=== PATIENT | male | born 1955 | race Caucasian/White ===

== ENCOUNTER 2016-11-25 16:51 | Emergency (ER) | payer SELFPAY ==
[~2016-11-25 16:51] MED LIST: D5W ONE; DOPAMINE HCL ONE; EPINEPHrine 1 MG/10 ML Abboject SYRINGE ONE; Magnesium 5 GM/10 ML VIAL ONE; Sodium Chloride 0.9% 1,000 ML BAG ONE; Sodium Chloride 0.9% 500 ML BAG ONE
[2016-11-25 17:29] LABS: INR-International Normal Ratio 1.4; Prothrombin Time 17.1 SEC (12.0-14.7)
[2016-11-25 17:34] LABS: %Lymphocytes 37.3 % (21.0-51.0); %Neutrophils 53.9 % (42.0-75.0); Hemoglobin 11.9 g/dL (14.0-18.0); Mean Corpuscular HGB CONC 34.9 g/dL (32.0-36.0); Mean Corpuscular Hemoglobin 36.2 pg (27.0-31.0); Mean Platelet Volume 8.6 fL (7.4-10.4); Platelet Count 161 thou/uL (130-400); RBC Distribution Width 11.8 % (11.5-14.5); Red Blood Cell (RBC) Count 3.29 mill/uL (4.70-6.10); White Blood Cell (WBC) Count 6.7 thou/uL (4.8-10.8)
[2016-11-25 17:35] LABS: %Basophils 2.8 % (0.0-1.0); Macrocytosis SLIGHT = 6-15 cells (100X) (0-5/hpf)
--- NOTE | 2016-11-25 17:36 | ERRECORD ---
[facility] EMERGENCY RECORD HPI CRITICAL ILLNESS CHIEF COMPLAINT: Patient presents for evaluation of syncope. (17:13 ABUS) HISTORIAN: History provided by patient's family, Additional history obtained from EMS, 61 yr old M brought in by EMS with reports of losing consciousness at CPR was started by bystanders for about 10 min and then EMS did CPR for 10-15 mins, placed a Richard airway, and 4 doses of epi with ROSC. Family present who said they found klonopin in his back pocket and possibly ingested aspirin, but it is unclear. There is concern for possible ingestion and suicide attempt but again this is not validated. (17:13 ABUS) CRITICAL CARE: Time spent providing critical care to patient was 30-74 minutes, 30 minutes, Total number of minutes spent in direct care of this critically ill patient excluding procedure time. (19:47 ABUS) E/M CAVEAT: Emergency room caveat invoked due to, Cardiac arrest now intubated. (17:13 ABUS) ROS (17:19 ABUS) CARDIOVASCULAR: Historian reports syncope. NOTES: Systems not reviewed; unable., Emergency room caveat invoked due to intubated patient. PAST MEDICAL HISTORY (17:29 AWAT) MEDICAL HISTORY: Notes: UNKNOWN PER BROTHER. MALE SURGICAL HISTORY: NONE KNOWN PER BROTHER. PSYCHIATRIC HISTORY: Notes: UNKNOWN PER BROTHER. SOCIAL HISTORY: Social History includes UNKNOWN PER BROTHER. KNOWN ALLERGIES UNKNOWN CURRENT MEDICATIONS (17:43 CJEF) Unknown VITAL SIGNS VITAL SIGNS: BP: 98/41, Pulse: 58, Resp: 12 (Not breathing on own), O2 sat: 95 on Ventilator, Time: 11/25/2016 16:52. (16:52 CJEF) BP: 145/105, Pulse: 59, Resp: 12 (Not breathing on own), Temp: 97.9 (Rectal), O2 sat: 95 on Ventilator, Time: 11/25/2016 17:00. (17:00 CJEF) BP: 32/22, Pulse: 62, Resp: 12 (Not breathing on own), Time: 11/25/2016 17:04. (17:04 CJEF) BP: 155/88, Pulse: 62, Resp: 12, O2 sat: 98 on Ventilator, Time: 11/25/2016 17:09. (17:09 CJEF) BP: 67/42, Pulse: 47, Resp: 12, O2 sat: 100 on Ventilator, Time: 11/25/2016 17:16. (17:16 CJEF) BP: 55/34, Pulse: 54, Resp: 12 (Not breathing on own), O2 sat: 100 on Ventilator, Time: 11/25/2016 17:19. (17:19 CJEF) BP: 171/96, Pulse: 59, Resp: 12 (Not breathing on own), O2 sat: 97 on Ventilator, Time: 11/25/2016 17:29. (17:29 CJEF) &a-1R&a+25V*p+0X*[id number]*c152B*c15G*c2P*p-0X&a-25V&a+1RName: John Lilly : 1955 M61 MedRec: [id number] AcctNum: [id number] Prepared: MonNov 25, 2016 19:54 by Interface Page 1 of 3 pMD [facility] EMERGENCY RECORD BP: 111/64, Pulse: 53, Resp: 12 (Not breathing on own), Temp: 97.8 (Rectal), O2 sat: 98 on Ventilator, Time: 11/25/2016 17:30. (17:30 CJEF) PHYSICAL EXAM (17:20 ABUS) CONSTITUTIONAL: Pulse normal, Blood pressure normal, Respiratory rate, artificial. HEAD: Head exam normal, Head exam included findings of head atraumatic, normocephalic. EYES: Eye exam included findings of eyelids normal to inspection, Pupils equally round and reactive to light, Left pupil 4 mm in size, Right pupil 4 mm in size, no periorbital ecchymosis, no periorbital edema, no periorbital erythema. ENT: Ear exam normal, external ear normal, Nose exam normal, no nasal deformity, Pharynx exam normal, not injected, no swelling, symmetrical, Uvula exam normal, Tonsil exam normal, not enlarged, no exudates, Mouth exam normal, mucous membranes moist. NECK: Neck exam normal, Trachea midline. RESPIRATORY CHEST: Respiratory exam included findings of, severe respiratory distress, Pedro lung sounds with mechanical ventilation. CARDIOVASCULAR: Carotids normal, Femoral pulses normal. NEURO: Intubated. NOTES: Notes: ROSC after PEA arrest and repeat PEA arrest. EKG INTERPRETATION (17:28 ABUS) 12 LEAD EKG INTERPRETATION: 12 lead EKG interpreted by Emergency Department Physician at time of study, 12 lead EKG shows normal sinus rhythm, Rate (beats per minute): 74, with no ectopics, Conduction with, incomplete right bundle branch block, first degree AV block, ST, depression, in V3, in V4, in V5, T waves normal, Clinical impression:, non-specific EKG, myocardial ischemia. RADIOLOGYINTERPRETATION (17:30 ABUS) CHEST: Films of the chest show, no infiltrate, no pneumothorax, no hemothorax, no pleural effusion, Endotracheal tube in good position. RANGE MOUNTER: Preliminary review of x-rays by, ED Physician. MEDICATION ADMINISTRATION SUMMARY Drug Name: *magnesium sulfate intravenous, Dose Ordered: 1 g, Route: IV Push, Status: Given, Time: 17:24 11/25/2016, Drug Name: *DOPamine in 5 % dextrose, Dose Ordered: 5 mcg/kg/min, Route: IV Fluid Infusion, Status: Given, Time: 17:23 11/25/2016, Drug Name: *EPINEPHrine injection, Dose Ordered: 1 mg, Route: IV Push, Status: Given, Time: 17:21 11/25/2016, Drug Name: *sodium chloride 0.9 % intravenous, Dose Ordered: 1 L, Route: IV Fluid Infusion, Status: Given, Time: 17:17 11/25/2016, &a-1R&a+25V*p+0X*[id number]*c152B*c15G*c2P*p-0X&a-25V&a+1RName: VijayaRodri estradaarlene Austin : 1955 M61 MedRec: [id number] AcctNum: [id number] Prepared: MonNov 25, 2016 19:54 by Interface Page 2 of 3 pMD [facility] EMERGENCY RECORD Drug Name: *EPINEPHrine injection, Dose Ordered: 1 mg, Route: IV Push, Status: Given, Time: 17:06 11/25/2016, Drug Name: *sodium chloride 0.9 % intravenous, Dose Ordered: 500 mL, Route: IV Fluid Infusion, Status: Given, Time: 17:02 11/25/2016, *Additional information available in notes, Detailed record available in Medication Service section. DOCTOR NOTES TEXT: 61 yr old M brought in by EMS with reports of losing consciousness at CPR was started by bystanders for about 10 min and then EMS did CPR for 10-15 mins, placed a Richard airway, and 4 doses of epi with ROSC. Exam: Pulses present after ROSC. Mechanical ventilation. Sinus rhythm DX: Ingestion vs OD vs NE Plan: While in the ED and initial ROSC the patient went back into PEA arrest and responded to 1 round of CPR and 1 mg of EPI. Family was updated. Concern for possible multi-drug ingestion per reports of family and meds found on the patient that were not his. Post ROSC care, mild hypothermia, air flight to [place] after report given to Dr. Valiente in [place] and who accepted the pt for transfer. Air flight arrived to take the patient to [place]. (17:25 ABUS) CRITICAL CARE: Time spent providing critical care to patient was 30-74 minutes, 30 minutes, Total number of minutes spent in direct care of this critically ill patient excluding procedure time. (19:47 ABUS) PROBLEM LIST No recorded problems DIAGNOSIS (18:07 ABUS) FINAL: PRIMARY: CARDIAC ARREST CAUSE UNSPECIFIED. PRESCRIPTION No recorded prescriptions DISPOSITION PATIENT: Disposition Type: Transfer, Disposition: Transfer to [facility], Disposition Transport: Helicopter, Condition: Critical. (18:07 ABUS) Patient left the department. (19:44 CJEF) Shah: ABUS=MD Tyesha, Eder FRY=STEVEN Concepcion, Kostas CJEF=STEVEN Goldstein, Nicolette &a-1R&a+25V*p+0X*[id number]*c152B*c15G*c2P*p-0X&a-25V&a+1RName: John Lilly : 1955 M61 MedRec: [id number] AcctNum: [id number] Prepared: MonNov 25, 2016 19:54 by Interface Page 3 of 3 pMD MTDD
[2016-11-25 17:37] LABS: ALT (SGPT) 184 U/L (0-55); AST (SGOT) 251 U/L (5-34); Albumin 3.2 g/dL (3.5-5.0); Alkaline Phosphatase 68 U/L (40-150); Anion Gap 29 mmol/L (10-20); BUN (Urea Nitrogen) 14 mg/dL (8.4-25.7); Bilirubin, Total 0.4 mg/dL (0.2-1.2); Calc. Creatinine Clearance 0 mL/min (70-130); Carbon Dioxide 17 mmol/L (22-29); Chloride 93 mmol/L (98-107); Estimated GFR-MDRD 50; Globulin 1.9 g/dL (2.4-3.5); Potassium 3.1 mmol/L (3.5-5.1); Protein, Total 5.1 g/dL (6.0-8.3); Sodium 136 mmol/L (136-145)
[2016-11-25 17:38] LABS: Glucose 373 mg/dL (70-105)
--- NOTE | 2016-11-25 17:42 | PICIS ---
[facility] EMERGENCY RECORD COMMUNICATIONS (16:55 AWAT) COMMUNICATIONS: Notes: [facility] CALLED NOW REQUESTING AUTOLAUNCH. TRIAGE (16:54 CJEF) TRIAGE NOTES: POST CPR. (16:54 CJEF) PATIENT: PHONE: . (17:07) NAME: John Lilly, AGE: 61, GENDER: male, : Mon1955, TIME OF GREET: MonNov 25, 2016 16:52, PREFERRED LANGUAGE: [place]an, ETHNICITY: Not or , ECODE BILLING MAP: [facility] ER, KG WEIGHT: 81.65, , , PERSON ID: [id number]. (16:54 CJEF) Zip Code: [id number]. (17:25) COMPLAINT: CPR IN PROGRESS. (16:54 CJEF) ADMISSION: URGENCY: 1 Critical, ADMISSION SOURCE: Home, TRANSPORT: AMBULANCE - [facility] EMS, BED: TRIAGE. (16:54 CJEF) TREATMENTS IN PROGRESS: Saline Lock, Site: L hand, Gauge: 18, See EMS Record, Backboard/Spineboard in place. (17:29 AWAT) PROVIDERS: TRIAGE NURSE: Nicolette Goldstein RN. (16:54 CJEF) KNOWN ALLERGIES UNKNOWN CURRENT MEDICATIONS (17:43 CJEF) Unknown VITAL SIGNS VITAL SIGNS: BP: 98/41, Pulse: 58, Resp: 12 (Not breathing on own), O2 sat: 95 on Ventilator, Time: 11/25/2016 16:52. (16:52 CJEF) BP: 145/105, Pulse: 59, Resp: 12 (Not breathing on own), Temp: 97.9 (Rectal), O2 sat: 95 on Ventilator, Time: 11/25/2016 17:00. (17:00 CJEF) BP: 32/22, Pulse: 62, Resp: 12 (Not breathing on own), Time: 11/25/2016 17:04. (17:04 CJEF) BP: 155/88, Pulse: 62, Resp: 12, O2 sat: 98 on Ventilator, Time: 11/25/2016 17:09. (17:09 CJEF) BP: 67/42, Pulse: 47, Resp: 12, O2 sat: 100 on Ventilator, Time: 11/25/2016 17:16. (17:16 CJEF) BP: 55/34, Pulse: 54, Resp: 12 (Not breathing on own), O2 sat: 100 on Ventilator, Time: 11/25/2016 17:19. (17:19 CJEF) BP: 171/96, Pulse: 59, Resp: 12 (Not breathing on own), O2 sat: 97 on Ventilator, Time: 11/25/2016 17:29. (17:29 CJEF) BP: 111/64, Pulse: 53, Resp: 12 (Not breathing on own), Temp: 97.8 (Rectal), O2 sat: 98 on Ventilator, Time: 11/25/2016 17:30. (17:30 CJEF) NURSING ASSESSMENT: CARDIOVASCULAR (16:54 CJEF) CONSTITUTIONAL: Complex assessment performed, Patient arrives, via [facility], Unsteady gait, Lift to cart, History obtained from, no history available, Patient appears, unconscious, Patient, &a-1R&a+25V*p+0X*e9849B*c152B*c15G*c2P*p-0X&a-25V&a+1RName: John Lilly : 1955 M61 MedRec: [id number] AcctNum: [id number] Prepared: MonNov 25, 2016 19:54 by Interface Page 1 of 17 pMD [facility] EMERGENCY RECORD unresponsive, Patient, unresponsive, Patient is, Skin abnormal, Skin temperature is cold, Skin dry, Skin, ashen in color, pale in color, Mucous membranes, pale, Mucous membranes, dry, PT ARRIVES BY EMS POST RESCUSITATION BY EMS. PT APPATENTLY FELL DOWN AND WENT UNRESPONSIVE, REPORTED BY FAMILY. PT ARRIVED WITH X4 EPIS HAVING BEEN ADMINSITERED WELL 1 BICARB. PT WITH 18 G TO LEFT HAND AND LEFT HUMERAL IO IN PLACE. PT ALSO WITH RICHARD TUBE IN PLACE. PAIN: Patient is unable to relate pain to scale. CARDIOVASCULAR: Cardiovascular assessment findings include heart rate, bradycardic, Rate 58, Heart rhythm, sinus bradycardia, Notes: S/P CPR. RESPIRATORY/CHEST: Breath sounds clear, Respiratory assessment findings include respiratory effort, PT BEING VENTILATED VIA RICHARD TUBE AND VENTILATOR ON ARRIVAL, Converses, UNRESPONSIVE. SAFETY: Side rails up, Cart/Stretcher in lowest position, Call light within reach, Hospital ID band on. NURSING PROCEDURE: BEDSIDE RADIOLOGY (17:02 [facility]) PATIENT IDENTIFIER: Patient actively involved in identification process, Patient's identity verified by hospital ID bracelet. BEDSIDE RADIOLOGY: Portable chest x-ray performed. NOTES: Patient tolerated procedure well. SAFETY: Side rails up, Cart/Stretcher in lowest position, Hospital ID band on. NURSING PROCEDURE: BEDSIDE TESTING (17:09 [facility]) PATIENT IDENTIFIER: Patient actively involved in identification process, Patient's identity verified by hospital ID bracelet. GLUCOSE: Glucose testing indicated for mental status changes, Glucose testing indicated for POST CPR, Venous blood sample, Result (mg/dl) 256. FOLLOW-UP: After procedure, results given to Dr. BRICENO. NURSING PROCEDURE: [facility]: Arrived via advanced life support ambulance, Patient in respiratory arrest on arrival to Emergency department, Patient intubated prior to arrival, RICHARD TUBE IN PLACE, Patient in spinal immobilization on arrival, on a long board, Blood pressure: 98/41, Pulse: 58, Respiratory rate: 10, Temperature: 97.9, Pulse ox: 95, Cardiac rhythm in field pulseless electrical activity, IV access in place prior to arrival: Site 1, 18 gauge catheter, to the left hand, 0.9 normal saline 1 Liter infusing, Amount infused (mL) 900ML, PT WAS FOUND TO BE IN PEA ON EMS ARRIVAL. CPR STARTED AND PT WITH ROSC JUST PRIOR TO EMS ARRIVALTO ED., IV access in place prior to arrival: Site 2, Intraosseous catheter, IO TO LEFT HUMEROUS, EPINEPHRINE administered prior to arrival, amount (mg) 4 MG, given IV push, Other medication &a-1R&a+25V*p+0X*a2380Q*c152B*c15G*c2P*p-0X&a-25V&a+1RName: John Lilly : 1955 M61 MedRec: [id number] AcctNum: [id number] Prepared: MonNov 25, 2016 19:54 by Interface Page 2 of 17 pMD [facility] EMERGENCY RECORD administered prior to arrival, SODIUM BICARB, amount: 1 AMP, given IV push, Field notes: EMS ARRIVES AT 1652. (16:54 CJEF) ASSESSMENT: Patient placed on dust control engineer, showing sinus bradycardia, Patient placed on non-invasive blood pressure monitor, Patient placed on continuous pulse oximetry, Adult/pediatric oxisensor applied, Patient placed on carbon dioxide monitor, 58, Patient is unresponsive, Notes: PT UNRESPONSIVE AND VENTILATED. PT WITH PULSE RATE OF 58 ON ARRIVAL. (16:54 CJEF) CIRCULATION: Circulatory assessment findings include no palpable pulse, PULSES LOST; CPR STARTED, Blood pressure, hypotensive, Cardiopulmonary resuscitation started, Notes: BP DROPPED TO 32/22 AND PT LOST PULSE. CPR STARTED. (17:05 CJEF) DRUGS: EPINEPHRINE, (mg) 1 MG, given IV push. (17:06 CJEF) CRITICAL CARE TIME: Facility critical care time 30-74 minutes, Actual time (minutes): 58, for this critical care patient. (18:44 CJEF) NOTES: Patient tolerated procedure well. (17:05 CJEF) Patient tolerated procedure well. (17:06 CJEF) NURSING PROCEDURE: EKG CHART (17:19 CJEF) PATIENT IDENTIFIER: Patient actively involved in identification process, Patient's identity verified by hospital ID bracelet. EKG: EKG indicated for S/P CPR, 12 lead EKG performed on the left chest, first EKG. FOLLOW-UP: After procedure, EKG for interpretation given to Dr. BRICENO. NOTES: Patient tolerated procedure well. SAFETY: Side rails up, Cart/Stretcher in lowest position, Hospital ID band on. NURSING PROCEDURE: INTUBATION PATIENT IDENTIFIER: Patient's identity verified by hospital ID bracelet, Patient's identity verified by other identifier Emergent. (17:23 ABUS) Patient actively involved in identification process, Patient's identity verified by hospital ID bracelet, Patient's identity verified by EMS/staff command and control officer. (16:57 CJEF) INTUBATION: Intubation indicated for severe respiratory distress, Intubation indicated for Post arrest, Prior to intubation airway inserted, Prior to intubation oxygen saturation 98%, via ventilator applied, Patient intubated orally, Cricoid pressure used during intubation, Ventilated with Ambu bag post intubation, Endotracheal tube secured, with tube taylor, Breath sounds heard bilaterally, no gurgling over abdomen, Positive carbon dioxide by detector, Readin, Chest x-ray ordered to confirm placement, Chest x-ray completed and placement confirmed. (17:23 ABUS) Intubation indicated for POST RESUSCITATION, Prior to intubation oxygen saturation 95%, by adult/pediatric oxisensor, on 100%, via ventilator applied, Prior to intubation breath sounds clear, Patient intubated orally, Intubated by Dr. BRICENO, using a 7.5 mm endotracheal tube, in &a-1R&a+25V*p+0X*o4388K*c152B*c15G*c2P*p-0X&a-25V&a+1RName: John Lilly : 1955 M61 MedRec: [id number] AcctNum: [id number] Prepared: MonNov 25, 2016 19:54 by Interface Page 3 of 17 pMD [facility] EMERGENCY RECORD one attempts, Number at the lip (cm) 25, Yankauer suction at head of bed, Cricoid pressure used during intubation, Ventilated with Ambu bag post intubation, Endotracheal tube secured, with tube taylor, Breath sounds heard bilaterally, no gurgling over abdomen, Positive carbon dioxide by detector, Readin, Chest x-ray ordered to confirm placement, Chest x-ray completed and placement confirmed, Notes: PT ARRIVES WITH RICHARD TUBE IN PLACE AND ON VENT. TYESHA TAKES OUT RICHARD TUBE AND INTUBATES PT WITH GLIDE SCOPE AND 7.5 TUBE ON ONE ATTEMPT. INSERTION CONFIRMED. (16:57 CJEF) FOLLOW-UP: Post intubation oxygen saturation 98%, , breath sounds not clear, After intubation, patient placed on ventilator with settings: FIO2 100, Tidal Volume: 500, PEEP: 5. (17:23 ABUS) Post intubation oxygen saturation 98%, After intubation, breath sounds positive for being clear, After intubation, patient placed on ventilator with settings: FIO2 100, Tidal Volume: 500ML, PEEP: 5, Respiratory rate: 10. (16:57 CJEF) SAFETY: Side rails up, Cart/Stretcher in lowest position, Hospital ID band on. (16:57 CJEF) NURSING PROCEDURE: IV (17:08 CJEF) PATIENT IDENITIFIER: Patient actively involved in identification process, Patient's identity verified by hospital ID bracandaceet. IV SITE 3: IV therapy indicated for hydration, IV therapy indicated for medication administration, IV established, to the right forearm, using an 18 gauge catheter, in one attempt, IV site prepped with CHLORAPREP, Saline lock established, Flushed with normal saline (mls): 10. NURSING PROCEDURE: LAB DRAW (16:55 CJEF) PATIENT IDENTIFIER: Patient actively involved in identification process, Patient's identity verified by patient stating name, Patient's identity verified by patient stating date. LAB DRAW: Lab draw indicated for obtaining specimens for evaluation, Initial lab draw performed, by venipuncture, from left forearm, in one attempt, Lab specimens labeled in the presence of the patient and sent to lab, DRAWN BY BUSINESS PROCESS ARCHITECT. SAFETY: Side rails up, Cart/Stretcher in lowest position, Hospital ID band on. NURSING PROCEDURE: NURSE NOTES NURSES NOTES: Notes: CBC, COMP MET, PT, PTT RESULTS FAXED TO [facility] NOW. (17:48 AWAT) Notes: CRITICAL HIGH LAB RESULT OF LACTIC ACID 12.9 RECIEVED NOW & REPORTED TO DR BRICENO. PT HAS ALREADY BEEN TRANSFERRED TO [facility] ER. (17:52 AWAT) Notes: PT ARRIVED WITH RICHARD TUBE IN PLACE AND PT ON VENTILATOR. (16:54 CJEF) Notes: TYESHA ORDERS 1/2 LITER OF NS TO BE ADMINISTERED. (16:59 CJEF) Notes: 5 KLONOPIN WERE FOUND IN PT'S POCKET. KLONOPIN WAS PLACED IN BAG WITH LABELS AND GIVEN TO TAMMY DOAN RN. (18:20 CJEF) &a-1R&a+25V*p+0X*w5185Z*c152B*c15G*c2P*p-0X&a-25V&a+1RName: John Lilly : 1955 M61 MedRec: [id number] AcctNum: [id number] Prepared: MonNov 25, 2016 19:54 by Interface Page 4 of 17 pMD [facility] EMERGENCY RECORD Notes: CPR CONTINUES WITH MUNIR DOING COMPRESSIONS AT THIS TIME. (17:07 CJEF) Notes: CPR STOPPED FOR PULSE CHECK AND IS FOUND TO BE IN SINUS RHYTHM. (17:09 CJEF) Notes: INCREASED RESP RATE TO 18 AND PEEP TO 10 DUE TO LOWER OXYGEN SATS. (17:10 CJEF) Notes: PT WITH GOOD BREATH SOUNDS AT THIS TIME. (17:11 CJEF) Notes: DR. BRICENO AT BEDSIDE TO CONFIRM GOOD ET TUBE PLACEMENT DUE TO LOWER SATS. ET TUBE IN GOOD POSITION. PULSE OX THEN PLACED ON PT'S LEFT EAR DUE TO POOR CIRCULATION TO HANDS AND HANDS ARE COLD. (17:13 CJEF) Notes: DECREASE IN HR AND BP; 1 MG OF EPI GIVEN. (19:21 CJEF) Notes: FAMILY AT BEDSIDE TO SEE PT. FAMILY ALSO STEPS OUTSIDE AND SPEAKS WITH PHYSICIAN. (17:25 CJEF) Patient in no apparent distress, Patient resting quietly, Warm blanket given to patient, Notes: VENT DECREASED BACK TO 10 BPM DUE TO VERIFICATION OF GOOD TUBE PLACEMENT AND PULSE OX MOVED TO EAR. (17:13 CJEF) Notes: VENT CHANGED TO 12 BPM. (17:26 CJEF) Notes: PT STILL WITH PULSE AND INCREASING BP AND HR AFTER MED ADMINISTRATIONS. AIR MED 12 CREW ARRIVES AND BEDSIDE REPORT GIVEN. ASSISTANCE GIVEN TO FLIGHT CREW WITH MOVING PT OVER TO THEIR STRETCHER. CARE GIVEN TO FELTON HARRIS AND FLIGHT MEDIC. (17:29 CJEF) Notes: PT OUT OF ER DOOR AND EN ROUTE TO UNIT FOR TRANSFER. (17:40 CJEF) NURSING PROCEDURE: URINE COLLECTION (17:03 CJEF) PATIENT IDENTIFIER: Patient actively involved in identification process, Patient's identity verified by hospital ID brapily. URINE COLLECTION MALE: Simple baker inserted, using a 16 fr pre-connected catheter, in one attempt, output amount (mL) 400ML, urine yellow in color. NOTES: Patient tolerated procedure well. SAFETY: Side rails up, Cart/Stretcher in lowest position, Hospital ID band on. ORDER DETAILS Order Name: Acetaminophen, Status: Active, Time: 17:15 11/25/2016, User: ABUS, - Ordered for: MD Briceno Anthony, - Entered by: MD Briceno Anthony - MonNov 25, 2016 17:15, - Quantity: 1, Order Name: B type Natriuretic Peptide, Status: Active, Time: 17:14 11/25/2016, User: ABUS, - Ordered for: MD Briceno Anthony, - Entered by: MD Briceno Anthony - MonNov 25, 2016 17:14, - Quantity: 1, Order Name: PICKER FEEDER ED, Status: Done, Time: 17:27 11/25/2016, User: AWAT, - Ordered for: MD Briceno Anthony, &a-1R&a+25V*p+0X*g2379R*c152B*c15G*c2P*p-0X&a-25V&a+1RName: John Lilly : 1955 M61 MedRec: [id number] AcctNum: [id number] Prepared: MonNov 25, 2016 19:54 by Interface Page 5 of 17 pMD [facility] EMERGENCY RECORD - Entered by: MD Briceno Anthony - MonNov 25, 2016 17:14, - Quantity: 1, Order Name: Cardiac Profile w/CKMB & Troponin - I, Status: Active, Time: 17:14 11/25/2016, User: ABUS, - Ordered for: MD Briceno Anthony, - Entered by: MD Briceno Anthony - MonNov 25, 2016 17:14, - Quantity: 1, Order Name: CBC with Differential, Status: Active, Time: 17:14 11/25/2016, User: ABUS, - Ordered for: MD Briceno Anthony, - Entered by: MD Briceno Anthony - MonNov 25, 2016 17:14, - Quantity: 1, Order Name: Comprehensive Metabolic Panel, Status: Active, Time: 17:14 11/25/2016, User: ABUS, - Ordered for: MD Briceno Anthony, - Entered by: MD Briceno Anthony - MonNov 25, 2016 17:14, - Quantity: 1, Order Name: Drug Screen, Urine, Status: Active, Time: 19:40 11/25/2016, User: CJEF, - Ordered for: MD Briceno Anthony, - Entered by: STEVEN Goldstein Cassie - MonNov 25, 2016 19:40, - Quantity: 1, Order Name: EKG 12 Lead in Emergency Room, Status: Active, Time: 17:14 11/25/2016, User: ABUS, - Ordered for: MD Briceno Anthony, - Entered by: MD Briceno Anthony - MonNov 25, 2016 17:14, - Quantity: 1, Order Name: BAKER CATHETER ED, Status: Done, Time: 17:27 11/25/2016, User: AWAT, - Ordered for: MD Briceno Anthony, - Entered by: MD Briceno Anthony - MonNov 25, 2016 17:16, - Quantity: 1, Order Name: Lactic Acid, Status: Active, Time: 17:15 11/25/2016, User: ABUS, - Ordered for: MD Briceno Anthony, - Entered by: MD Briceno Anthony - MonNov 25, 2016 17:15, - Quantity: 1, Order Name: Magnesium, Status: Active, Time: 17:14 11/25/2016, User: ABUS, - Ordered for: MD Briceno Anthony, - Entered by: MD Briceno Anthony - MonNov 25, 2016 17:14, - Quantity: 1, Order Name: Miscellaneous Nurse Order(s), Status: Done, Time: 17:27 11/25/2016, User: AWAT, - Ordered for: MD Briceno Anthony, - Entered by: MD Briceno Anthony - MonNov 25, 2016 17:16, - Quantity: 1, Order Name: Protime with INR, Status: Active, Time: 17:14 11/25/2016, User: ABUS, - Ordered for: MD Briceno Anthony, - Entered by: MD Briceno Anthony - MonNov 25, 2016 17:14, &a-1R&a+25V*p+0X*l3565L*c152B*c15G*c2P*p-0X&a-25V&a+1RName: John Lilly : 1955 M61 MedRec: [id number] AcctNum: [id number] Prepared: MonNov 25, 2016 19:54 by Interface Page 6 of 17 pMD [facility] EMERGENCY RECORD - Quantity: 1, Order Name: PTT, Status: Active, Time: 17:14 11/25/2016, User: ABUS, - Ordered for: MD Briceno Anthony, - Entered by: MD Briceno Anthony - MonNov 25, 2016 17:14, - Quantity: 1, Order Name: Salicylate, Status: Active, Time: 17:15 11/25/2016, User: ABUS, - Ordered for: MD Briceno Anthony, - Entered by: MD Briceno Anthony - MonNov 25, 2016 17:15, - Quantity: 1, Order Name: SALINE LOCK, Status: Done, Time: 17:27 11/25/2016, User: AWAT, - Ordered for: MD Briceno Anthony, - Entered by: MD Briceno Anthony - MonNov 25, 2016 17:14, - Quantity: 1, Order Name: XR Chest 1 View Portable, Status: Canceled, Time: 17:20 11/25/2016, User: System, - Ordered for: MD Briceno Anthony, - Entered by: MD Briceno Anthony - MonNov 25, 2016 17:14, - Quantity: 1. MEDICATION ADMINISTRATION SUMMARY Drug Name: *magnesium sulfate intravenous, Dose Ordered: 1 g, Route: IV Push, Status: Given, Time: 17:24 11/25/2016, Drug Name: *DOPamine in 5 % dextrose, Dose Ordered: 5 mcg/kg/min, Route: IV Fluid Infusion, Status: Given, Time: 17:23 11/25/2016, Drug Name: *EPINEPHrine injection, Dose Ordered: 1 mg, Route: IV Push, Status: Given, Time: 17:21 11/25/2016, Drug Name: *sodium chloride 0.9 % intravenous, Dose Ordered: 1 L, Route: IV Fluid Infusion, Status: Given, Time: 17:17 11/25/2016, Drug Name: *EPINEPHrine injection, Dose Ordered: 1 mg, Route: IV Push, Status: Given, Time: 17:06 11/25/2016, Drug Name: *sodium chloride 0.9 % intravenous, Dose Ordered: 500 mL, Route: IV Fluid Infusion, Status: Given, Time: 17:02 11/25/2016, *Additional information available in notes, Detailed record available in Medication Service section. MEDICATION SERVICE DOPamine in 5 % dextrose: Order: DOPamine in 5 % dextrose (dopamine HCl/dextrose 5 % in water) - Dose: 5 mcg/kg/min : IV Fluid Infusion Schedule: Now Notes: Verbal Order Ordered by: Eder Briceno MD Entered by: Nicolette Goldstein RN MonNov 25, 2016 19:24 Documented as given by: Nicolette Goldstein RN MonNov 25, 2016 17:23 Patient, Medication, Dose, Route and Time verified prior to administration. Amount given: 5 MCG/KG/MIN, IV SITE #1 IVPB or drip, subsequent infusion, via primary tubing, on an IV pump, Connections checked &a-1R&a+25V*p+0X*x8274G*c152B*c15G*c2P*p-0X&a-25V&a+1RName: John Lilly : 1955 M61 MedRec: [id number] AcctNum: [id number] Prepared: MonNov 25, 2016 19:54 by Interface Page 7 of 17 pMD [facility] EMERGENCY RECORD prior to administration, Line traced prior to administration, Catheter placement confirmed via flush prior to administration, IV site without signs or symptoms of infiltration during medication administration, No swelling during administration, No drainage during administration, IV flushed after administration, Correct patient, time, route, dose and medication confirmed prior to administration, Patient advised of actions and side-effects prior to administration, Allergies confirmed and medications reviewed prior to administration, Patient tolerated procedure well, Patient in position of comfort, Side rails up, Cart in lowest position. : Follow Up : Response assessment performed, No signs or symptoms of allergic reaction noted, _IV SITE #1:_, Medication infusion continued upon transfer from emergency department, on MonNov 25, 2016 17:40, 20 minutes, ., Total amount infused: 5ML, Advised not to ambulate without assistance, Patient in position of comfort, Side rails up. (17:40 [facility]) EPINEPHrine injection: Order: EPINEPHrine injection (epinephrine) - Dose: 1 mg : IV Push Schedule: Now Notes: Verbal Order Ordered by: Eder Briceno MD Entered by: Nicolette Goldstein RN MonNov 25, 2016 18:37 Documented as given by: Nicolette Goldstein RN MonNov 25, 2016 17:06 Patient, Medication, Dose, Route and Time verified prior to administration. Amount given: 1 MG, IV SITE #1 IVP, subsequent different medication, Slowly, Catheter placement confirmed via flush prior to administration, IV site without signs or symptoms of infiltration during medication administration, No swelling during administration, No drainage during administration, IV flushed after administration, Correct patient, time, route, dose and medication confirmed prior to administration, Patient advised of actions and side-effects prior to administration, Allergies confirmed and medications reviewed prior to administration, Patient tolerated procedure well, Patient in position of comfort, Side rails up. : Follow Up : Increased blood pressure, Increased heart rate, Advised not to ambulate without assistance, Patient in position of comfort, Side rails up, Cart in lowest position, Family at bedside. (17:40 [facility]) EPINEPHrine injection: Order: EPINEPHrine injection (epinephrine) - Dose: 1 mg : IV Push Schedule: Now Notes: Verbal Order Verbal Order Ordered by: Eder Briceno MD Entered by: Nicoeltte Goldstein RN MonNov 25, 2016 19:22 Documented as given by: Nicolette Goldstein RN MonNov 25, 2016 17:21 Patient, Medication, Dose, Route and Time verified prior to administration. Amount given: 1 MG, IV SITE #1 IVP, subsequent different medication, Slowly, Connections checked prior to administration, Line traced &a-1R&a+25V*p+0X*a6810B*c152B*c15G*c2P*p-0X&a-25V&a+1RName: John Lilly Geovanna : 1955 M61 MedRec: [id number] AcctNum: [id number] Prepared: MonNov 25, 2016 19:54 by Interface Page 8 of 17 pMD [facility] EMERGENCY RECORD prior to administration, Catheter placement confirmed via flush prior to administration, IV site without signs or symptoms of infiltration during medication administration, No swelling during administration, No drainage during administration, IV flushed after administration, Correct patient, time, route, dose and medication confirmed prior to administration, Patient advised of actions and side-effects prior to administration, Allergies confirmed and medications reviewed prior to administration, Patient tolerated procedure well, Patient in position of comfort, Side rails up, Cart in lowest position. : Follow Up : Response assessment performed, No signs or symptoms of allergic reaction noted, Increased blood pressure, Increased heart rate, Advised not to ambulate without assistance, Patient in position of comfort, Side rails up, Cart in lowest position. (17:40 [facility]) magnesium sulfate intravenous: Order: magnesium sulfate intravenous (magnesium sulfate) - Dose: 1 g : IV Push Schedule: Now Notes: Verbal Order Ordered by: Eder Briceno MD Entered by: Nicolette Goldstein RN MonNov 25, 2016 19:28 Documented as given by: Nicolette Goldstein RN MonNov 25, 2016 17:24 Patient, Medication, Dose, Route and Time verified prior to administration. Amount given: 1 G, IV SITE #1 IVP, subsequent different medication, Slowly, Connections checked prior to administration, Line traced prior to administration, Catheter placement confirmed via flush prior to administration, IV site without signs or symptoms of infiltration during medication administration, No swelling during administration, No drainage during administration, IV flushed after administration, Correct patient, time, route, dose and medication confirmed prior to administration, Patient advised of actions and side-effects prior to administration, Allergies confirmed and medications reviewed prior to administration, Patient tolerated procedure well, Patient in position of comfort, Side rails up, Cart in lowest position. sodium chloride 0.9 % intravenous: Order: sodium chloride 0.9 % intravenous (0.9 % sodium chloride) - Dose: 500 mL : IV Fluid Infusion Schedule: Now Notes: (Bolus) Verbal Order Ordered by: Eder Briceno MD Entered by: Nicolette Goldstein RN MonNov 25, 2016 18:21 Documented as given by: Nicolette Goldstein RN MonNov 25, 2016 17:02 Patient, Medication, Dose, Route and Time verified prior to administration. Amount given: 500ML, IV SITE #1 IV fluids established for hydration, IV SITE #1 into left hand, IV SITE #1 bolus of 500 ml established, via primary tubing, Awake and alert- acceptable, Connections checked prior to administration, Line traced prior to administration, Catheter placement confirmed via flush prior to administration, IV site without signs or symptoms of infiltration during medication &a-1R&a+25V*p+0X*x3555G*c152B*c15G*c2P*p-0X&a-25V&a+1RName: John Lilly : 1955 M61 MedRec: [id number] AcctNum: [id number] Prepared: MonNov 25, 2016 19:54 by Interface Page 9 of 17 pMD [facility] EM[facility]GENCY RECORD administration, No swelling during administration, No drainage during administration, IV flushed after administration, Correct patient, time, route, dose and medication confirmed prior to administration, Patient advised of actions and side-effects prior to administration, Allergies confirmed and medications reviewed prior to administration, Patient tolerated procedure well, Patient in position of comfort, Side rails up, Cart in lowest position. : Follow Up : Response assessment performed, No signs or symptoms of allergic reaction noted, _IV SITE #1:_, IV fluid infusion discontinued, on MonNov 25, 2016 17:17, 15 minutes, ., Total amount infused: 500ML, Advised not to ambulate without assistance, Patient in position of comfort, Side rails up, Cart in lowest position. (17:17 CJ) sodium chloride 0.9 % intravenous: Order: sodium chloride 0.9 % intravenous (0.9 % sodium chloride) - Dose: 1 L : IV Fluid Infusion Schedule: Now Notes: (Bolus) Ordered by: Eder Briceno MD Entered by: Eder Briceno MD MonNov 25, 2016 17:17 Documented as given by: Nicolette Goldstein RN MonNov 25, 2016 17:17 Patient, Medication, Dose, Route and Time verified prior to administration. Amount given: 1 L, IV SITE #1 IV fluids established for hydration, IV SITE #1 into left antecubital, IV SITE #1 bolus of 1000 ml established, via primary tubing, Awake and alert- acceptable, Connections checked prior to administration, Line traced prior to administration, Catheter placement confirmed via flush prior to administration, IV site without signs or symptoms of infiltration during medication administration, No swelling during administration, No drainage during administration, IV flushed after administration, Correct patient, time, route, dose and medication confirmed prior to administration, Patient advised of actions and side-effects prior to administration, Allergies confirmed and medications reviewed prior to administration, Patient tolerated procedure well, Patient in position of comfort, Side rails up, Cart in lowest position. : Follow Up : Response assessment performed, No signs or symptoms of allergic reaction noted, _IV SITE #1:_, IV fluid infusion continued upon transfer from emergency department, on MonNov 25, 2016 17:40, 25 minutes, ., Total amount infused: 250ML, Advised not to ambulate without assistance, Patient in position of comfort, Side rails up, Cart in lowest position. (17:40 CJEF) HPI CRITICAL ILLNESS CHIEF COMPLAINT: Patient presents for evaluation of syncope. (17:13 ABUS) HISTORIAN: History provided by patient's family, Additional history obtained from EMS, 61 yr old M brought in by EMS with reports of losing consciousness at CPR was started by bystanders for about 10 min and then EMS did CPR for 10-15 mins, placed a Richard airway, and 4 doses of epi with ROSC. Family present who said they found klonopin in his &a-1R&a+25V*p+0X*b0695M*c152B*c15G*c2P*p-0X&a-25V&a+1RName: John Lilly : 1955 M61 MedRec: [id number] AcctNum: [id number] Prepared: MonNov 25, 2016 19:54 by Interface Page 10 of 17 pMD [facility] EM[facility]GENCY RECORD back pocket and possibly ingested aspirin, but it is unclear. There is concern for possible ingestion and suicide attempt but again this is not validated. (17:13 ABUS) CRITICAL CARE: Time spent providing critical care to patient was 30-74 minutes, 30 minutes, Total number of minutes spent in direct care of this critically ill patient excluding procedure time. (19:47 ABUS) E/M CAVEAT: Emergency room caveat invoked due to, Cardiac arrest now intubated. (17:13 ABUS) ROS (17:19 ABUS) CARDIOVASCULAR: Historian reports syncope. NOTES: Systems not reviewed; unable., Emergency room caveat invoked due to intubated patient. PAST MEDICAL HISTORY (17:29 AWAT) MEDICAL HISTORY: Notes: UNKNOWN PER BROTHER. MALE SURGICAL HISTORY: NONE KNOWN PER BROTHER. PSYCHIATRIC HISTORY: Notes: UNKNOWN PER BROTHER. SOCIAL HISTORY: Social History includes UNKNOWN PER BROTHER. PHYSICAL EXAM (17:20 ABUS) CONSTITUTIONAL: Pulse normal, Blood pressure normal, Respiratory rate, artificial. HEAD: Head exam normal, Head exam included findings of head atraumatic, normocephalic. EYES: Eye exam included findings of eyelids normal to inspection, Pupils equally round and reactive to light, Left pupil 4 mm in size, Right pupil 4 mm in size, no periorbital ecchymosis, no periorbital edema, no periorbital erythema. ENT: Ear exam normal, external ear normal, Nose exam normal, no nasal deformity, Pharynx exam normal, not injected, no swelling, symmetrical, Uvula exam normal, Tonsil exam normal, not enlarged, no exudates, Mouth exam normal, mucous membranes moist. NECK: Neck exam normal, Trachea midline. RESPIRATORY CHEST: Respiratory exam included findings of, severe respiratory distress, Pedro lung sounds with mechanical ventilation. CARDIOVASCULAR: Carotids normal, Femoral pulses normal. NEURO: Intubated. NOTES: Notes: ROSC after PEA arrest and repeat PEA arrest. EVENTS TRANSFER: Triage to Emergency Triage. (MonNov 25, 2016 16:54 CJEF) Emergency Triage to Waiting. (17:42 CJEF) Removed from Emergency Waiting. (19:44 CJEF) RADIOLOGYINTERPRETATION (17:30 ABUS) CHEST: Films of the chest show, no infiltrate, no pneumothorax, no hemothorax, no pleural effusion, Endotracheal tube in good &a-1R&a+25V*p+0X*p0043Y*c152B*c15G*c2P*p-0X&a-25V&a+1RName: John Lilly Geovanna : 1955 M61 MedRec: [id number] AcctNum: [id number] Prepared: MonNov 25, 2016 19:54 by Interface Page 11 of 17 D [facility] EMERGENCY RECORD position. SPINNER IRON: Preliminary review of x-rays by, ED Physician. EKG INTERPRETATION (17:28 ABUS) 12 LEAD EKG INTERPRETATION: 12 lead EKG interpreted by Emergency Department Physician at time of study, 12 lead EKG shows normal sinus rhythm, Rate (beats per minute): 74, with no ectopics, Conduction with, incomplete right bundle branch block, first degree AV block, ST, depression, in V3, in V4, in V5, T waves normal, Clinical impression:, non-specific EKG, myocardial ischemia. DOCTOR NOTES TEXT: 61 yr old M brought in by EMS with reports of losing consciousness at CPR was started by bystanders for about 10 min and then EMS did CPR for 10-15 mins, placed a Richard airway, and 4 doses of epi with ROSC. Exam: Pulses present after ROSC. Mechanical ventilation. Sinus rhythm DX: Ingestion vs OD vs SD Plan: While in the ED and initial ROSC the patient went back into PEA arrest and responded to 1 round of CPR and 1 mg of EPI. Family was updated. Concern for possible multi-drug ingestion per reports of family and meds found on the patient that were not his. Post ROSC care, mild hypothermia, air flight to [place] after report given to Dr. Valiente in [place] and who accepted the pt for transfer. Air flight arrived to take the patient to [place]. (17:25 ABUS) CRITICAL CARE: Time spent providing critical care to patient was 30-74 minutes, 30 minutes, Total number of minutes spent in direct care of this critically ill patient excluding procedure time. (19:47 ABUS) PROBLEM LIST No recorded problems DIAGNOSIS (18:07 ABUS) FINAL: PRIMARY: CARDIAC ARREST CAUSE UNSPECIFIED. DISPOSITION PATIENT: Disposition Type: Transfer, Disposition: Transfer to [facility], Disposition Transport: Helicopter, Condition: Critical. (18:07 ABUS) Patient left the department. (19:44 CJEF) PRESCRIPTION No recorded prescriptions IMAGING *MEMORANDUM OF TRANSFER: Image captured from scanner. (17:17 AWAT) EMS TRANSPORT ORDERS: Image captured from scanner. (17:17 AWAT) &a-1R&a+25V*p+0X*u0644P*c152B*c15G*c2P*p-0X&a-25V&a+1RName: John Lilly : 1955 M61 MedRec: [id number] AcctNum: [id number] Prepared: MonNov 25, 2016 19:54 by Interface Page 12 of 17 D [facility] EMERGENCY RECORD CONSENTS: Image captured from scanner. (17:17 AWAT) *EKG: Image captured from scanner. (17:22 AWAT) PHI: Image captured from scanner. (17:25 AWAT) TRANSFER WORKSHEET: Image captured from scanner. (17:57 AWAT) Page 2 added. Image captured from scanner. (17:57 AWAT) *SUPPLY CHARGE SHEET: Image captured from scanner. (18:14 AWAT) CODE SHEET: Image captured from scanner. (19:19 CJEF) Page 2 added. Image captured from scanner. (19:19 CJEF) ADMIN DIGITAL SIGNATURE: MD Tyesha, Eder. (17:31 ABUS) MD Briceno Anthony. (18:07 ABUS) MD Briceno Anthony. (19:47 ABUS) RESULTS RADIOLOGY: XR Chest 1 View Portable Observe DT: MonNov 25, 2016 17:02, CXRP PORTABLE CHEST 1 VIEW: Date: 11/25/16 Time: 1656 hours HISTORY: Respiratory failure. Code Blue. FINDINGS/IMPRESSION: The heart size is enlarged. There is an endotracheal tube with tip at the level of the clavicular he ads. The nasogastric tube can also be traced to the level of the clavicular heads. It cannot be said with certainty if this is within the endotracheal tube or in the esophagus. Recommend removing this tube and replacing it. There is elevation of the right hemidiaphragm. No confluent areas of consoli dation, pneumothorax, or large effusions are seen. Discussed over the telephone with ER physician, Dr. Eder Acosta, at 1709 hours. CODE CR. POS: [facility] . (17:56 AWAT) LABORATORY: Comprehensive Metabolic Panel Collection DT: MonNov 25, 2016 17:28, Sodium 136 mmol/L, Range (136-145), *Potassium 3.1 - L mmol/L, Range (3.5-5.1), *Chloride 93 - L mmol/L, Range (98-107), *Carbon Dioxide 17 - L mmol/L, Range (22-29), *Anion Gap 29 - H mmol/L, Range (10-20), &a-1R&a+25V*p+0X*c9601E*c152B*c15G*c2P*p-0X&a-25V&a+1RName: Vijaya, John Austin : 1955 M61 MedRec: [id number] AcctNum: [id number] Prepared: MonNov 25, 2016 19:54 by Interface Page 13 of 17 pMD [facility] EM[facility]GENCY RECORD BUN (Urea Nitrogen) 14 mg/dL, Range (8.4-25.7), *Creatinine 1.45 - H mg/dL, Range (0.7-1.3), Estimated GFR-MDRD 50 , Reference Range for Estimated GFR: Greater than 90, mL/min/1.73 m2 NOTE: The MDRD equation has not been validated for use, with the elderly (over 70 years of age), women, patients with, serious comorbid condition or persons with extremes of body size, muscle, mass, or nutritional status. , *Glucose 373 - H mg/dL, Range (70-105), Calcium 8.0 mg/dL, Range (7.8-10.44), Bilirubin, Total 0.4 mg/dL, Range (0.2-1.2), *Protein, Total 5.1 - L g/dL, Range (6.0-8.3), NOTE: Plasma values are generally 0.3 to 0.5 g/dL higher than serum values, due to the presence of fibrinogen. , *Albumin 3.2 - L g/dL, Range (3.5-5.0), *Globulin 1.9 - L g/dL, Range (2.4-3.5), Alb/Glob Ratio 1.7 g/dL, Range (1.2-2.2), Alkaline Phosphatase 68 U/L, Range (40-150), *AST (SGOT) 251 - H U/L, Range (5-34), *ALT (SGPT) 184 - H U/L, Range (0-55). (17:45 AWAT) CBC with Differential Collection DT: MonNov 25, 2016 17:28, White Blood Cell (WBC) Count 6.7 thou/uL, Range (4.8-10.8), *Red Blood Cell (RBC) Count 3.29 - L mill/uL, Range (4.70-6.10), *Hemoglobin 11.9 - L g/dL, Range (14.0-18.0), *Hematocrit 34.1 - L %, Range (42.0-52.0), *Mean Corpuscular Volume 104.0 - H fl, Range (80.0-94.0), *Mean Corpuscular Hemoglobin 36.2 - H pg, Range (27.0-31.0), Mean Corpuscular HGB CONC 34.9 g/dL, Range (32.0-36.0), RBC Distribution Width 11.8 %, Range (11.5-14.5), Platelet Count 161 thou/uL, Range (130-400), Mean Platelet Volume 8.6 fL, Range (7.4-10.4), %Neutrophils 53.9 %, Range (42.0-75.0), %Lymphocytes 37.3 %, Range (21.0-51.0), %Monocytes 5.0 %, Range (0.0-10.0), %Eosinophils 1.0 %, Range (0.0-10.0), *%Basophils 2.8 - H %, Range (0.0-1.0), Macrocytosis SLIGHT = 6-15 cells (100X), Range (0-5/hpf). (17:45 AWAT) PTT Collection DT: MonNov 25, 2016 17:28, See comment below , Anticoagulant? NONE Medical Necessity SUSPECT COAGULOPATHY , *PTT 59.0 - H SEC, Range (22.9-36.1). (17:45 AWAT) Protime with INR Collection DT: MonNov 25, 2016 17:28, See comment below , Anticoagulant? NONE Medical Necessity SUSPECT COAGULOPATHY , *Prothrombin Time 17.1 - H SEC, Range (12.0-14.7), INR-International Normal Ratio 1.4 , ATTENTION: READ CAREFULLY , &a-1R&a+25V*p+0X*j2324Z*c152B*c15G*c2P*p-0X&a-25V&a+1RName: John Lilly : 1955 M61 MedRec: [id number] AcctNum: [id number] Prepared: MonNov 25, 2016 19:54 by Interface Page 14 of 17 pMD [facility] EMERGENCY RECORD The, recommended therapeutic ranges for oral anticoagulant treatments are: , , Low Intensity: 1.5 - 2.0 Moderate Intensity: 2.0, - 3.0 High Intensity (1): 2.5 - 3.5 High, Intensity (2): 3.0 - 4.0 CRITICAL: >, 4.0 . (17:45 AWAT) Lactic Acid Collection DT: MonNov 25, 2016 17:28, See comment below , CALLED TO STEVEN TRIPP @ ER ROOM#: TRIAGE[TxData]:ER.BE , Critical Call Chem-Lactate CALLED W/READ BACK , *Lactic Acid 12.9 - *H mmol/L, Range (0.5-2.2). (17:56 AWAT) Comprehensive Metabolic Panel Collection DT: MonNov 25, 2016 17:28, Sodium 136 mmol/L, Range (136-145), *Potassium 3.1 - L mmol/L, Range (3.5-5.1), *Chloride 93 - L mmol/L, Range (98-107), *Carbon Dioxide 17 - L mmol/L, Range (22-29), *Anion Gap 29 - H mmol/L, Range (10-20), BUN (Urea Nitrogen) 14 mg/dL, Range (8.4-25.7), *Creatinine 1.45 - H mg/dL, Range (0.7-1.3), Estimated GFR-MDRD 50 , Reference Range for Estimated GFR: Greater than 90, mL/min/1.73 m2 NOTE: The MDRD equation has not been validated for use, with the elderly (over 70 years of age), women, patients with, serious comorbid condition or persons with extremes of body size, muscle, mass, or nutritional status. , *Glucose 373 - H mg/dL, Range (70-105), Calcium 8.0 mg/dL, Range (7.8-10.44), Bilirubin, Total 0.4 mg/dL, Range (0.2-1.2), *Protein, Total 5.1 - L g/dL, Range (6.0-8.3), NOTE: Plasma values are generally 0.3 to 0.5 g/dL higher than serum values, due to the presence of fibrinogen. , *Albumin 3.2 - L g/dL, Range (3.5-5.0), *Globulin 1.9 - L g/dL, Range (2.4-3.5), Alb/Glob Ratio 1.7 g/dL, Range (1.2-2.2), Alkaline Phosphatase 68 U/L, Range (40-150), *AST (SGOT) 251 - H U/L, Range (5-34), *ALT (SGPT) 184 - H U/L, Range (0-55). (17:56 AWAT) Cardiac Profile w/CKMB & TropI Collection DT: MonNov 25, 2016 17:28, CKMB 3.2 ng/mL, Range (0-6.6), *Troponin I 0.068 - H ng/mL, Range (< 0.028), Reference Range &a-1R&a+25V*p+0X*u5935L*c152B*c15G*c2P*p-0X&a-25V&a+1RName: John Lilly Geovanna : 1955 M61 MedRec: [id number] AcctNum: [id number] Prepared: MonNov 25, 2016 19:54 by Interface Page 15 of 17 pMD [facility] EM[facility]GENCY RECORD , 0.00 - 0.028 ng/mL Negative 0.029 - 0.29 ng/mL , Indeterminate Greater or Equal to 0.3 ng/mL Strongly suggests SD , . (17:56 AWAT) B type Natriuretic Peptide Collection DT: MonNov 25, 2016 17:28, *B type Natriuretic Peptide 226.0 - H pg/mL, Range (0-100). (18:34 CJEF) Salicylate Collection DT: MonNov 25, 2016 17:28, *Salicylate Less than 5.0 - L mg/dL, Range (15.0-30.0). (18:34 CJEF) Acetaminophen Collection DT: MonNov 25, 2016 17:28, *Acetaminophen Less than 3.0 - L mcg/mL, Range (10.0-30.0), Therapeutic Range: 10.0 - 30.0 ug/mL Toxic Range: Possible, toxicity: 150 - 200 ug/mL Probable toxicity: Greater than 200, ug/mL *IMPORTANT TESTING INFORMATION* The half-life of NAC is 2, hours. The total NAC clearance is 5.6 hours for adults and 11 hours for, Newborns. Testing acetaminophen levels prior to a reasonable time frame, for clearance can cause falsely decreased acetaminophen levels. . (18:34 [facility]) Magnesium Collection DT: MonNov 25, 2016 17:28, Magnesium 2.6 mg/dL, Range (1.6-2.6). (18:34 [facility]) Comprehensive Metabolic Panel Collection DT: MonNov 25, 2016 17:28, Sodium 136 mmol/L, Range (136-145), *Potassium 3.1 - L mmol/L, Range (3.5-5.1), *Chloride 93 - L mmol/L, Range (98-107), *Carbon Dioxide 17 - L mmol/L, Range (22-29), *Anion Gap 29 - H mmol/L, Range (10-20), BUN (Urea Nitrogen) 14 mg/dL, Range (8.4-25.7), *Creatinine 1.45 - H mg/dL, Range (0.7-1.3), Estimated GFR-MDRD 50 , Reference Range for Estimated GFR: Greater than 90, mL/min/1.73 m2 NOTE: The MDRD equation has not been validated for use, with the elderly (over 70 years of age), women, patients with, serious comorbid condition or persons with extremes of body size, muscle, mass, or nutritional status. , *Glucose 373 - H mg/dL, Range (70-105), Calcium 8.0 mg/dL, Range (7.8-10.44), Bilirubin, Total 0.4 mg/dL, Range (0.2-1.2), *Protein, Total 5.1 - L g/dL, Range (6.0-8.3), NOTE: Plasma values are generally 0.3 to 0.5 g/dL higher than serum values, due to the presence of fibrinogen. , *Albumin 3.2 - L g/dL, Range (3.5-5.0), *Globulin 1.9 - L g/dL, Range (2.4-3.5), Alb/Glob Ratio 1.7 g/dL, Range (1.2-2.2), &a-1R&a+25V*p+0X*x1042U*c152B*c15G*c2P*p-0X&a-25V&a+1RName: John Lilly : 1955 M61 MedRec: [id number] AcctNum: [id number] Prepared: MonNov 25, 2016 19:54 by Interface Page 16 of 17 pMD [facility] EMERGENCY RECORD Alkaline Phosphatase 68 U/L, Range (40-150), *AST (SGOT) 251 - H U/L, Range (5-34), *ALT (SGPT) 184 - H U/L, Range (0-55). (18:34 CJEF) CBC with Differential Collection DT: MonNov 25, 2016 17:28, White Blood Cell (WBC) Count 6.7 thou/uL, Range (4.8-10.8), *Red Blood Cell (RBC) Count 3.29 - L mill/uL, Range (4.70-6.10), *Hemoglobin 11.9 - L g/dL, Range (14.0-18.0), *Hematocrit 34.1 - L %, Range (42.0-52.0), *Mean Corpuscular Volume 104.0 - H fl, Range (80.0-94.0), *Mean Corpuscular Hemoglobin 36.2 - H pg, Range (27.0-31.0), Mean Corpuscular HGB CONC 34.9 g/dL, Range (32.0-36.0), RBC Distribution Width 11.8 %, Range (11.5-14.5), Platelet Count 161 thou/uL, Range (130-400), Mean Platelet Volume 8.6 fL, Range (7.4-10.4), %Neutrophils 53.9 %, Range (42.0-75.0), %Lymphocytes 37.3 %, Range (21.0-51.0), %Monocytes 5.0 %, Range (0.0-10.0), %Eosinophils 1.0 %, Range (0.0-10.0), *%Basophils 2.8 - H %, Range (0.0-1.0), Macrocytosis SLIGHT = 6-15 cells (100X), Range (0-5/hpf). (18:34 CJEF) Shah: CARO=MD Tyesha, Eder FRY=STEVEN Concepcion, Kostas CJEF=STEVEN Goldstein, Nicolette &a-1R&a+25V*p+0X*j2890E*c152B*c15G*c2P*p-0X&a-25V&a+1RName: John Lilly : 1955 M61 MedRec: [id number] AcctNum: [id number] Prepared: MonNov 25, 2016 19:54 by Interface Page 17 of 17 pMD MTDD
[2016-11-25 17:48] LABS: CKMB 3.2 ng/mL (0-6.6); Troponin I 0.068 ng/mL (< 0.028)
[2016-11-25 17:51] LABS: Lactic Acid 12.9 mmol/L (0.5-2.2)
[2016-11-25 17:57] LABS: Manual Diff?? YES
[2016-11-25 17:58] LABS: MDiff Complete? YES
[2016-11-25 18:06] LABS: Acetaminophen Less than 3.0 mcg/mL (10.0-30.0); Magnesium 2.6 mg/dL (1.6-2.6); Salicylate Less than 5.0 mg/dL (15.0-30.0)
[2016-11-25 20:01] LABS: Amphetamine Not Detected (NotDetected); Barbiturates Screen Not Detected (NotDetected); Benzodiazepine Screen Not Detected (NotDetected); Cocaine Metabolite Screen Not Detected (NotDetected); Medtox Control Line Valid? VALID (VALID); Methadone Not Detected (NotDetected); Methamphetamine Not Detected (NotDetected); Opiate Screen Not Detected (NotDetected); Oxycodone Screen Not Detected (NotDetected); Phencyclidine (PCP) Not Detected (NotDetected); THC/Cannabinoid Screen Not Detected (NotDetected); Tricyclic Screen Not Detected (NotDetected)
== END 2016-11-25 17:40 | disposition short-term general hospital (02) ==
LOC: MADERS 16:51
DX: I46.9 Cardiac arrest, cause unspecified (principal)
CPT/HCPCS: 36415; 36416; 51702; 71010; 80053; 80306; 80307; 82553; 83605; 83735; 83880; 84484; 85025; 85610; 85730; 93005; 96365; 96375; J0171; J1265; J3475; J7050